=== PATIENT | female | born 1960 | race African-American/Black ===

== ENCOUNTER 2020-11-08 13:22 | Outpatient (CLI) | payer BC | END 2020-11-08 13:23 | disposition critical access hospital (66) | LOC: EMS 13:22 | DX: R53.1 Weakness (principal) | CPT/HCPCS: A0425; A0429 ==

== ENCOUNTER 2020-11-08 13:48 | Emergency (ER) | payer BC ==
[2020-11-08] MEDS ORDERED: SODIUM CHLORIDE 0.9% 1,000 ML IV STA (14:12)
--- NOTE | 2020-11-08 14:29 | ED Physician Documentation ---
History of Present Illness - Stated complaint Stated Complaint: GEN WEAKNESS - Chief complaint Chief Complaint: General - History obtained from History obtained from: Patient, EMS - Additonal information Additional information: Patient comes emergency department chief complaint of fatigue and generalized weakness after for the past approximately week. She states that she is not sure exactly what got her feeling bad, though she has been under a lot of stress lately. 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 She states she comes home from work around 4:00 in the afternoon, and sits down to watch TV, and promptly falls asleep. She usually wakes up around 2100, at which time she takes Benadryl and Tylenol Cold to try to help her go back to sleep. She states she usually is awake till about 2:00 in the morning and then finally falls asleep, but has to be at work at 645, so does not get sleep for very long. She states it seems to be a vicious cycle that is going on. She also Says she has noticed what appears to be mold growing up the side of her trash can and has noticed black flecks in her water. It makes her feel as though her apartment is contaminated and this bothers her as well. Patient denies any chest pain, shortness of breath, cough, fever, chills, nausea, or vomiting. She has not had any sick contacts that she knows of. No other complaints at this time. Review of Systems Ten Systems: 10 systems reviewed and negative Constitutional: reports: Fatigue Eyes: reports: Reviewed and negative Ears: reports: Reviewed and negative Nose: reports: Reviewed and negative Throat: reports: Reviewed and negative Cardiac: reports: Reviewed and negative Respiratory: reports: Reviewed and negative GI: reports: Reviewed and negative : reports: Reviewed and negative Skin: reports: Reviewed and negative Musculoskeletal: reports: Reviewed and negative Neurologic: reports: Reviewed and negative Psychiatric: reports: Reviewed and negative Endocrine: reports: Reviewed and negative Immunocompromised: reports: Reviewed and negative PD PAST MEDICAL HISTORY - Allergies Allergies/Adverse Reactions: Allergies Allergy/AdvReac Type Severity Reaction Status Date / Time No Known Drug Allergies Allergy Verified 11/08/20 13:57 PD ED PE NORMAL - Vitals Vital signs reviewed: Yes - General General: Alert and oriented X 3, No acute distress, Well developed/nourished - HEENT HEENT: Atraumatic, PERRL, EOMI, Moist mucous membranes - Neck Neck: Supple, no meningeal sign - Cardiac Cardiac: RRR, No murmur, Strong equal pulses - Respiratory Respiratory: No respiratory distress, Clear bilaterally - Abdomen Abdomen: Soft, Non tender, Non distended - Derm Derm: Normal color, Warm and dry, No rash - Extremities Extremities: No deformity, No edema - Neuro Neuro: Alert and oriented X 3, stock speculator 2-12 intact, Normal speech - Psych Psych: Normal mood, Normal affect Results - Vitals Vitals: Oxygen O2 Source Room air - Labs Labs: Laboratory Tests 11/08/20 16:15 Urine Color YELLOW Urine Clarity CLEAR Urine pH 7.0 Ur Specific Lehr 1.015 Urine Protein NEGATIVE Urine Glucose (UA) NEGATIVE Urine Ketones NEGATIVE Urine Occult Blood NEGATIVE Urine Nitrite NEGATIVE Urine Bilirubin NEGATIVE Urine Urobilinogen 0.2 (NORMAL) Ur Leukocyte Esterase NEGATIVE Ur Microscopic Review NOT INDICATED Urine Culture Comments NOT INDICATED PD MEDICAL DECISION MAKING - ED course Complexity details: reviewed results, re-evaluated patient, considered differential, d/w patient ED course: The patient overall was fairly well-appearing, but I thought she may benefit from some IV fluids if it was possible to give her some. However, despite many attempts, nursing staff could not get an IV on the patient. I did not feel the patient was ill enough to warrant putting a central line and, so patient was given oral fluids instead. I have encouraged her to follow-up in primary care and to consider different living situation if she does not feel her current living situation is healthy. There is nothing to indicate an emergent condition at this time. Discussed the usual indications for return. Departure - Departure Disposition: 01 Home, Self Care Clinical Impression: Dehydration Fatigue Qualifiers: Fatigue type: unspecified Qualified Code(s): R53.83 - Other fatigue Condition: Stable Instructions: ED Dehydration Comments: You have been given a liter of IV fluid here in the emergency department. It is not clear why you are feeling fatigued and having the tiredness and problems with insomnia that you are, but you should follow-up in primary care for further evaluation since we are unable to draw your blood tonight. Please be sure to work on your sleep patterns by trying to stay awake for longer after you get off work so that you can get to bed closer to normal time and sleep through the night. Try taking the Benadryl right before bedtime instead of later on. This will help you to not feel so tired during your workday. Discharge Date/Time: 11/08/20 17:30
--- NOTE | 2020-11-08 14:53 | XRAY Report ---
PROCEDURE: Chest 1 View X-Ray INDICATIONS: chest pain TECHNIQUE: One view of the chest was acquired. COMPARISON: None. FINDINGS: Surgical changes and devices: None. Lungs and pleura: No pleural effusions or pneumothorax. Lungs appear clear. Mediastinum: Mediastinal contours appear normal. Heart size is normal. Bones and chest wall: No suspicious bony lesions. Overlying soft tissues appear unremarkable. IMPRESSION: No acute cardiopulmonary abnormality identified. Reviewed by: Carl Lyn MD on 11/08/2020 1:52 PM [facility] Approved by: Carl Lyn MD on 11/08/2020 1:52 PM [facility] Station ID: [id number]
[2020-11-08 16:57] LABS: BILIRUBIN,URINE NEGATIVE (NEGATIVE); GLUCOSE, URINE (UA) NEGATIVE (NEGATIVE); KETONES,URINE (UA) NEGATIVE (NEGATIVE); LEUKOCYTE ESTERASE, URINE NEGATIVE (NEGATIVE); NITRITE,URINE NEGATIVE (NEGATIVE); OCCULT BLOOD,URINE NEGATIVE (NEGATIVE); PROTEIN,URINE NEGATIVE (NEGATIVE); UROBILINOGEN,URINE 0.2 (NORMAL) E.U./dL (NORMAL)
[2020-11-08 16:59] LABS: CLARITY,URINE CLEAR (CLEAR)
[2020-11-08 17:15] VITALS: BP 114/47
== END 2020-11-08 17:30 | disposition home or self-care (01) ==
LOC: ED 13:48
DX: E86.0 Dehydration (principal)
CPT/HCPCS: 80053; 81001; 81003; 83690; 85025; 87086; 96360; 96361; 99283

== ENCOUNTER 2020-11-10 10:55 | Outpatient (CLI) | payer BC | END 2020-11-10 10:56 | disposition short-term general hospital (02) | LOC: EMS 10:55 | DX: M25.511 Pain in right shoulder (principal); R51.9 Headache, unspecified; G47.00 Insomnia, unspecified; R29.898 Other symptoms and signs involving the musculoskeletal system | CPT/HCPCS: A0425; A0427 ==

== ENCOUNTER 2021-02-01 09:32 | Outpatient (CLI) | payer BC | END 2021-02-01 09:33 | disposition EMS.NT | LOC: EMS 09:32 | DX: Z03.89 Encounter for observation for other suspected diseases and conditions ruled out (principal) ==